=== PATIENT | male | born 1995 | race Caucasian/White ===

== ENCOUNTER 2018-09-11 21:54 | Emergency (ER) | payer OTHER ==
[2018-09-11 22:30] VITALS: BMI 27.4
[2018-09-11 22:53] VITALS: RESP 18; TEMP 98.1
[2018-09-11] MEDS ORDERED: TDAP Vaccine 0.5 mL Syr IM ONE (22:59)
[2018-09-11] MEDS ORDERED: Naproxen 550 mg Tab PO STA (23:38)
[2018-09-11] MEDS ORDERED: Liquid Adhesive TOP ONE (23:48)
--- NOTE | 2018-09-11 23:53 | ED PDOC ---
Arrival/HPI - General Chief Complaint: Wound Check Time Seen by Provider: 09/11/18 22:02 Historian: Patient - History of Present Illness Narrative History of Present Illness (Text): 09/12/18 00:01 23 yo M complaining of laceration tot he R forearm, which he sustained after he broke his window to get inside of his house after locking himself in at 1am this morning. States that he went to [facility] to be treated, had XR of his arm, which were negative, and his wounds were stapled, however one of the wounds opened up after he started to lift heavy objects at his house today. Denies any fevers, chills, numbness, decrease in ROM, redness or swelling. Past Medical History - Infectious Disease Hx of Infectious Diseases: None - Psychiatric Hx Substance Use: Yes (marijuana daily) - Anesthesia Hx Anesthesia: No Family/Social History Family/Social History: No Known Family HX Smoking Status: Light Smoker < 10 Cigarettes Daily Hx Alcohol Use: Yes Hx Substance Use: Yes (marijuana daily) Allergies/Home Meds Allergies/Adverse Reactions: Allergies No Known Allergies Allergy (Verified 09/11/18 22:30) Home Medications: Home Meds Medication Instructions Recorded Confirmed No Known Home Med 09/11/18 09/11/18 Review of Systems - Review of Systems Constitutional: absent: Fatigue, Fevers Musculoskeletal: absent: Arthralgias, Back Pain, Neck Pain Skin: Laceration. absent: Rash, Skin Lesions Physical Exam Vital Signs Temp Pulse Resp BP Pulse Ox 09/11/18 22:31 98.1 F 88 18 122/81 99 Temperature: Afebrile Blood Pressure: Normal Pulse: Regular Respiratory Rate: Normal Appearance: Positive for: Well-Appearing, Non-Toxic, Comfortable Pain Distress: None Mental Status: Positive for: Alert and Oriented X 3 - Systems Exam Upper Extremity: Present: Normal ROM, NORMAL PULSES, Neurovascularly Intact, Capillary Refill < 2s, Norm 2-Pt Discrimination, Other (+2 cm laceration to the distal volar aspect of the R forearm, +0.5 cm laceration to the distal volar R forearm, +stapled wound to the base of the R thumb). No: Swelling, Erythema, Temperature Abnormalties Lower Extremity: Present: Normal Inspection Neurological: Present: GCS=15, CN II-XII Intact, Speech Normal, Motor Func Grossly Intact, Normal Sensory Function Skin: Present: Warm, Dry, Normal Color. No: Rashes Psychiatric: Present: Alert, Oriented x 3, Normal Insight, Normal Concentration Medical Decision Making - Medication Orders Current Medication Orders: Soap/Cleanser (Mastisol Adhesive) 0.666 ml TOP ONCE ONE Stop: 09/11/18 23:49 Discontinued Medications Naproxen (Anaprox Ds) 550 mg PO ONCE STA Stop: 09/11/18 23:39 Tetanus/Reduced Diphtheria/Acell Pertussis (Boostrix Vaccine Inj) 0.5 ml IM .ONCE ONE Stop: 09/11/18 23:00 Last Admin: 09/11/18 23:29 Dose: 0.5 ml Immunization Registry Document 09/11/18 23:29 MARK ANTHONY (Rec: 09/11/18 23:29 MARK ANTHONY [id number]-Date provided 09/11/18 Procedure: Wound Repair - Time Performed Time Performed: 23:50 - Time Out Time Out: Side verified, Site verified, Patient ID confirmed, Sterile procedures obs. - Consent Obtained Consent obtained: Verbal - Performed by Performed by: Mid-level Provider - Indications Indication(s):: Laceration - Location Location:: Right, Forearm Shape:: Linear Dimensions Length cm: 2.5 Depth:: Epidermis - Debris Debris:: None - Complexity Complexity:: Simple (one layer) - Wound repair method Elizabeth:: Steri-strips - Patient tolerated procedure Patient Tolerated Procedure:: Well - PA / PIE MAKER MACHINE / Resident Statement MD/DO has reviewed & agrees with the documentation as recorded. Disposition/Present on Arrival - Present on Arrival Any Indicators Present on Arrival: No History of DVT/PE: No History of Uncontrolled Diabetes: No Urinary Catheter: No History of Decub. Ulcer: No History Surgical Site Infection Following: None - Disposition Have Diagnosis and Disposition been Completed?: Yes Diagnosis: Laceration of right forearm Disposition: HOME/ ROUTINE Disposition Time: 00:00 Patient Plan: Discharge Patient Problems: Current Active Problems Problem Status Onset Laceration of right forearm Acute Condition: STABLE Discharge Instructions (ExitCare): Laceration Repair, Wound Care (DC) Additional Instructions: Thank you for letting us take care of you today. You were treated for right forearm laceration. The emergency medical care you received today was directed at your acute symptoms. It may take several days for your symptoms to resolve. Return to the Emergency Department if your symptoms worsen, do not improve, or if you have any other problems. Please contact your doctor in 2 days for re-evaluation and follow up / or call one of the physicians/clinics you have been referred to that are listed on the Patient Visit Information form that is included in your discharge packet. Bring any paperwork you were given at discharge with you along with any medications you are taking to your follow up visit. Our treatment cannot replace ongoing medical care by a primary care provider (PCP) outside of the emergency department. Thank you for allowing the [facility] team to be part of your care today. Referrals: Fransisco Polanco, [Staff Provider] - Follow up with primary Forms: [facility] (Khmer), WORK NOTE, SCHOOL NOTE
[2018-09-12 00:37] VITALS: BP 120/75; PULSE 81; O2SAT 100
== END 2018-09-12 00:35 | disposition home or self-care (01) ==
LOC: ED 21:54
DX: S51.811D Laceration without foreign body of right forearm, subsequent encounter (principal); W25.XXXD Contact with sharp glass, subsequent encounter; Z23 Encounter for immunization

== ENCOUNTER 2018-11-03 19:03 | Observation (INO) | payer OTHER ==
[2018-11-03 19:46] VITALS: BMI 23.7
--- NOTE | 2018-11-03 20:54 | ED PDOC ---
Arrival/HPI - General Chief Complaint: Finger,Hand,&Wrist Historian: Patient - History of Present Illness Narrative History of Present Illness (Text): 11/03/18 20:51 A 23 year old male, with no significant past medical history, presents to the emergency department infection to right thumb hand area. Patient reports he was seen prior at Urgent Care and had staple removal from a prior laceration repair 3 weeks prior. Patient was referred to ER due to severity of infection. Complains also of subjective fever and positive chills. Patient denies any other complaints at this time. Past Medical History - Provider Review Nursing Documentation Reviewed: Yes - Infectious Disease Hx of Infectious Diseases: None - Psychiatric Hx Substance Use: Yes (marijuana daily) - Anesthesia Hx Anesthesia: No Family/Social History - Physician Review Nursing Documentation Reviewed: Yes Family/Social History: No Known Family HX Smoking Status: Light Smoker < 10 Cigarettes Daily Hx Alcohol Use: Yes Hx Substance Use: Yes (marijuana daily) Allergies/Home Meds Allergies/Adverse Reactions: Allergies No Known Allergies Allergy (Verified 11/03/18 19:46) Home Medications: Home Meds Medication Instructions Recorded Confirmed No Known Home Med 09/11/18 11/03/18 Review of Systems - Physician Review All systems were reviewed & negative as marked: Yes - Review of Systems Constitutional: Fevers, Night Sweats Musculoskeletal: Other (infection to right thumb) Physical Exam Vital Signs Reviewed: Yes Vital Signs Temp Pulse Resp BP Pulse Ox 11/03/18 19:50 98.4 F 69 18 128/80 98 Temperature: Afebrile Blood Pressure: Normal Pulse: Regular Respiratory Rate: Normal Appearance: Positive for: Well-Appearing, Non-Toxic, Comfortable Pain Distress: None Mental Status: Positive for: Alert and Oriented X 3 - Systems Exam Head: Present: Atraumatic, Normocephalic Pupils: Present: PERRL Extroacular Muscles: Present: EOMI Conjunctiva: Present: Normal Mouth: Present: Moist Mucous Membranes Neck: Present: Normal Range of Motion Respiratory/Chest: Present: Clear to Auscultation, Good Air Exchange. No: Respiratory Distress, Accessory Muscle Use Cardiovascular: Present: Regular Rate and Rhythm, Normal S1, S2. No: Murmurs Abdomen: No: Tenderness, Distention, Peritoneal Signs Back: Present: Normal Inspection Upper Extremity: Present: Normal ROM, NORMAL PULSES, Tenderness, Swelling, Erythema, Neurovascularly Intact, Other (erythema/swelling/tenderness proximal right thumb/thenar eminence ) Lower Extremity: Present: Normal Inspection, Neurovascularly Intact. No: Edema, Erythema, Deformity Neurological: Present: GCS=15, CN II-XII Intact, Speech Normal, Motor Func Grossly Intact, Normal Sensory Function Skin: Present: Warm, Dry, Normal Color. No: Rashes Psychiatric: Present: Alert, Oriented x 3, Normal Insight, Normal Concentration Medical Decision Making ED Course and Treatment: 11/03/18 20:54 Impression: 23 year old male with infection to right thumb s/p staple removal. Plan: -- Reassess and disposition Progress Notes: 11/03/18 23:[address] Calvo and claim review medical director, patient to be admitted under hospitalist service. - Scribe Statement The provider has reviewed the documentation as recorded by the Lamont Hester Provider Scribe Attestation: All medical record entries made by the Scribe were at my direction and personally dictated by me. I have reviewed the chart and agree that the record accurately reflects my personal performance of the history, physical exam, medical decision making, and the department course for this patient. I have also personally directed, reviewed, and agree with the discharge instructions and disposition. Disposition/Present on Arrival - Present on Arrival Any Indicators Present on Arrival: No History of DVT/PE: No History of Uncontrolled Diabetes: No Urinary Catheter: No History of Decub. Ulcer: No History Surgical Site Infection Following: None - Disposition Have Diagnosis and Disposition been Completed?: Yes Diagnosis: Cellulitis of right hand, Cellulitis of thumb, right Disposition: HOSPITALIZED Disposition Time: 23:04 Patient Problems: Current Active Problems Problem Status Onset Cellulitis of right hand Acute Cellulitis of thumb, right Acute Condition: STABLE
[2018-11-03] MEDS ORDERED: Piperacillin/Tazobact 3.375 gm 100 ML IV STA (21:36)
[2018-11-03] MEDS ORDERED: Vancomycin 1gm in NS 250ml 1 GM/250 ML BAG IVPB STA (21:40)
[2018-11-03 21:41] LABS: HEMOGLOBIN 13.9 g/dL (14.0-18.0); MEAN CELL VOLUME 91.8 fl (80.0-105.0); MEAN CORPUSCULAR HEMOGLOBIN 31.7 pg (25.0-35.0); MEAN CORPUSCULAR HGB CONC 34.6 g/dl (31.0-37.0); RBC 4.38 10^6/uL (3.5-6.1); RED CELL DISTRIBUTION WIDTH 12.9 % (11.5-14.5); WHITE BLOOD COUNT 13.6 10^3/uL (4.5-11.0)
[2018-11-03 21:46] LABS: ALB/GLOB RATIO 1.6 (1.1-1.8); ALBUMIN 5.4 g/dL (3.0-4.8); ALT/SGPT 18 U/L (7-56); AST/SGOT 30 U/L (17-59); BLOOD UREA NITROGEN 13 mg/dL (7-21); CALCIUM 10.3 mg/dL (8.4-10.5); GFR NON-AFRICAN AMERICAN > 60
--- NOTE | 2018-11-04 00:08 | CP.PCM.HP ---
<Hollis Grimaldo - Last Filed: 11/04/18 04:27> History of Present Illness - History of Present Illness History of Present Illness: PGY1 Medicine History and Physical Exam Note for Dr. Calvo CC: Right thumb pain A 23 year old male, with no significant past medical history, presents to [facility] ED for right thenar eminence laceration that has not healed x3 weeks. Patient reports he was seen prior at Urgent Care and had staple removal 3 weeks prior. Patient states he originally injured his hand because he broke a glass window with his right hand. Patient began noticing that the wound has not healed, became swollen and was tender to touch. Patient was referred to ER due to severity of infection by urgent care provider. ROS is significant for subjective fever and chills. ROS otherwise unremarkable for chest pain, shortness of breath, dizziness, numbness/tingling, abdominal pain, nausea, vomiting, lower extremity edema, and/or other complaints. PMH: None PSH: None Social Hx: admits to daily marijuana use, smokes < 10 cigs per day, admits to ETOH Family Hx: Patient denies Medications: per MAR Allergies: NKDA Present on Admission - Present on Admission Any Indicators Present on Admission: No History of DVT/PE: No History of Uncontrolled Diabetes: No Urinary Catheter: No Decubitus Ulcer Present: No Review of Systems - Review of Systems All systems: reviewed and no additional remarkable complaints except (as per HPI) Past Patient History - Infectious Disease Hx of Infectious Diseases: None - Past Social History Smoking Status: Light Smoker < 10 Cigarettes Daily - PSYCHIATRIC Hx Substance Use: Yes (marijuana daily) - SURGICAL HISTORY Hx Surgeries: No - ANESTHESIA Hx Anesthesia: No Meds Allergies/Adverse Reactions: Allergies Allergy/AdvReac Type Severity Reaction Status Date / Time No Known Allergies Allergy Verified 11/03/18 19:46 Physical Exam - Constitutional Appears: Non-toxic, No Acute Distress - Head Exam Head Exam: ATRAUMATIC, NORMAL INSPECTION, NORMOCEPHALIC - Eye Exam Eye Exam: EOMI, Normal appearance, PERRL Pupil Exam: NORMAL ACCOMODATION - ENT Exam ENT Exam: Mucous Membranes Moist, Normal Exam - Neck Exam Neck exam: Positive for: Normal Inspection - Respiratory Exam Respiratory Exam: Clear to Auscultation Bilateral, NORMAL BREATHING PATTERN. absent: Chest Wall Tenderness, Decreased Breath Sounds, Prolonged Expiratory Phase, Wheezes, Stridor - Cardiovascular Exam Cardiovascular Exam: REGULAR RHYTHM, +S1, +S2 - GI/Abdominal Exam GI & Abdominal Exam: Normal Bowel Sounds, Soft. absent: Distended, Guarding, Rebound, Rigid - Extremities Exam Extremities exam: Negative for: normal inspection Additional comments: laceration on right thenar eminence: positive for edema, erythema, no pus, no bleeding, tender to palpation, pulses in tact, ROM diminished due to pain/ swelling Results - Vital Signs Recent Vital Signs: Last Vital Signs Temp 98.4 F 11/04/18 00:01 Pulse 78 11/04/18 00:01 Resp 16 11/04/18 00:01 BP 105/73 11/04/18 00:01 Pulse Ox 100 11/04/18 00:01 - Labs Result Diagrams: 11/03/18 21:15 11/03/18 21:15 Labs: Laboratory Results - last 24 hr 11/03/18 11/03/18 21:15 21:15 WBC 13.6 H RBC 4.38 Hgb 13.9 L Hct 40.2 L MCV 91.8 MCH 31.7 MCHC 34.6 RDW 12.9 Plt Count 293 MPV 10.0 Sodium 140 Potassium 3.9 Chloride 101 Carbon Dioxide 28 Anion Gap 15 BUN 13 Creatinine 0.6 L Est GFR ( Amer) > 60 Est GFR (Non-Af Amer) > 60 Random Glucose 83 Calcium 10.3 Total Bilirubin 1.4 H AST 30 ALT 18 Alkaline Phosphatase 54 Total Protein 8.8 H Albumin 5.4 H Globulin 3.4 Albumin/Globulin Ratio 1.6 Assessment & Plan - Assessment and Plan (Free Text) Assessment: R Thumb pain in the setting of recent laceration and possible cellulitis vs abscess - Vanco and Zosyn given in ED - Continue Vanco & Zosyn in AM - F/U: R hand X-ray - Positive for leukocytosis - Patient afebrile - F/U Blood cultures - F/U wound cultures - Elevate affected extremity - Apply warm compresses to right thenar eminence - Tylenol PRN for pain - ID consulted; Dr. Torrez; rec appreciated - Surgery consulted; Dr. Mota; recommendations appreciated - Monitor Leukocytosis likely secondary to cellulitis - ID consulted; Dr. Torrez; rec appreciated - Patient afebrile - F/U Blood cultures - F/U wound cultures History of ETOH use - F/U UDS - CIWA protocol - Seizure precautions - Ativan PO PRN for withdrawal PPx: - GI: not indicated - DVT: SCD - Diet: regular diet Plan discussed with Dr. Umesh Grimaldo PGY1 <Ana Calvo - Last Filed: 11/04/18 10:19> Results - Vital Signs Recent Vital Signs: Last Vital Signs Temp 98 F 11/04/18 08:09 Pulse 58 L 11/04/18 08:09 Resp 18 11/04/18 08:09 BP 102/66 11/04/18 08:09 Pulse Ox 96 11/04/18 08:09 - Labs Result Diagrams: 11/04/18 05:20 11/04/18 05:20 Labs: Laboratory Results - last 24 hr 11/03/18 11/03/18 11/04/18 21:15 21:15 04:25 WBC 13.6 H RBC 4.38 Hgb 13.9 L Hct 40.2 L MCV 91.8 MCH 31.7 MCHC 34.6 RDW 12.9 Plt Count 293 MPV 10.0 Neut % (Auto) Lymph % (Auto) [place] % (Auto) Eos % (Auto) Baso % (Auto) Lymph # (Auto) [place] # (Auto) Eos # (Auto) Baso # (Auto) Absolute Neuts (auto) Sodium 140 Potassium 3.9 Chloride 101 Carbon Dioxide 28 Anion Gap 15 BUN 13 Creatinine 0.6 L Est GFR ( Amer) > 60 Est GFR (Non-Af Amer) > 60 Random Glucose 83 Calcium 10.3 Phosphorus Magnesium Total Bilirubin 1.4 H AST 30 ALT 18 Alkaline Phosphatase 54 Total Protein 8.8 H Albumin 5.4 H Globulin 3.4 Albumin/Globulin Ratio 1.6 Urine Color Urine Appearance Urine pH Ur Specific [place] Urine Protein Urine Glucose (UA) Urine Ketones Urine Blood Urine Nitrate Urine Bilirubin Urine Urobilinogen Ur Leukocyte Esterase Urine RBC Urine WBC Ur Epithelial Cells Urine Bacteria Urine Opiates Screen Negative Urine Methadone Screen Negative Ur Barbiturates Screen Negative Ur Phencyclidine Scrn Negative Ur Amphetamines Screen Negative U Benzodiazepines Scrn Negative U Oth Cocaine Metabols Negative U Cannabinoids Screen Positive H 03/01/19 03/01/19 03/01/19 04:25 05:20 05:20 WBC 10.1 D RBC 4.12 Hgb 12.8 L Hct 37.7 L MCV 91.5 MCH 31.1 MCHC 34.0 RDW 12.9 Plt Count 260 MPV 9.7 Neut % (Auto) 60.4 Lymph % (Auto) 31.8 [place] % (Auto) 7.2 H Eos % (Auto) 0.5 L Baso % (Auto) 0.1 Lymph # (Auto) 3.2 [place] # (Auto) 0.7 H Eos # (Auto) 0.1 Baso # (Auto) 0.01 Absolute Neuts (auto) 6.09 Sodium 140 Potassium 4.1 Chloride 105 Carbon Dioxide 25 Anion Gap 14 BUN 11 Creatinine 0.6 L Est GFR ( Amer) > 60 Est GFR (Non-Af Amer) > 60 Random Glucose 90 Calcium 9.7 Phosphorus 4.1 Magnesium 2.2 Total Bilirubin 2.1 H AST 29 ALT 11 Alkaline Phosphatase 50 Total Protein 7.4 Albumin 4.6 Globulin 2.8 Albumin/Globulin Ratio 1.6 Urine Color Yellow Urine Appearance Clear Urine pH 7.0 Ur Specific [place] 1.025 Urine Protein Negative Urine Glucose (UA) Negative Urine Ketones Trace H Urine Blood Trace-lysed H Urine Nitrate Negative Urine Bilirubin Negative Urine Urobilinogen 0.2 Ur Leukocyte Esterase Negative Urine RBC 0 - 2 Urine WBC 0 - 2 Ur Epithelial Cells 0 - 2 Urine Bacteria None Urine Opiates Screen Urine Methadone Screen Ur Barbiturates Screen Ur Phencyclidine Scrn Ur Amphetamines Screen U Benzodiazepines Scrn U Oth Cocaine Metabols U Cannabinoids Screen Attending/Attestation - Attestation I have personally seen and examined this patient.: No I have fully participated in the care of the patient.: Yes I have reviewed all pertinent clinical information: Yes
[2018-11-04 05:46] LABS: URINE BILIRUBIN NEGATIVE (NEGATIVE); URINE BLOOD TRACE-LYSED (NEGATIVE); URINE GLUCOSE (UA) NEGATIVE (NEGATIVE); URINE LEUKOCYTE ESTERASE NEGATIVE Leu/uL (NEGATIVE); URINE PROTEIN NEGATIVE mg/dL (<30 mg/dL); URINE UROBILINOGEN 0.2 E.U./dL (<1 E.U./dL)
[2018-11-04 05:47] LABS: URINE APPEARANCE CLEAR (CLEAR); URINE COLOR YELLOW (YELLOW)
[2018-11-04 05:57] LABS: BASO # 0.01 K/mm3 (0.0-2.0); BASO % 0.1 % (0.0-3.0); EOS # 0.1 (0.0-0.7); EOS % 0.5 % (1.5-5.0); HEMOGLOBIN 12.8 g/dL (14.0-18.0); LYMPH # 3.2 (1.2-3.4); LYMPH % 31.8 % (22.0-35.0); MEAN CELL VOLUME 91.5 fl (80.0-105.0); MEAN CORPUSCULAR HEMOGLOBIN 31.1 pg (25.0-35.0); MEAN PLATELET VOLUME 9.7 fl (7.0-11.0); MONO # 0.7 (0.1-0.6); MONO % 7.2 % (1.0-6.0); RBC 4.12 10^6/uL (3.5-6.1); RED CELL DISTRIBUTION WIDTH 12.9 % (11.5-14.5); WHITE BLOOD COUNT 10.1 10^3/uL (4.5-11.0)
[2018-11-04 05:58] LABS: URINE EPITHELIAL CELLS 0 - 2 /hpf (0-5); URINE RBC 0 - 2 /hpf (0-2); URINE WBC 0 - 2 /hpf (0-6)
[2018-11-04 06:01] LABS: BARBITURATES, UR NEGATIVE (NEGATIVE); BENZODIAZEPINES, UR NEGATIVE (NEGATIVE); OPIATES, UR NEGATIVE (NEGATIVE); PHENCYCLIDINE, UR NEGATIVE (NEGATIVE)
[2018-11-04 07:17] LABS: ALB/GLOB RATIO 1.6 (1.1-1.8); ALBUMIN 4.6 g/dL (3.0-4.8); ALT/SGPT 11 U/L (7-56); AST/SGOT 29 U/L (17-59); BLOOD UREA NITROGEN 11 mg/dL (7-21); CALCIUM 9.7 mg/dL (8.4-10.5); GFR NON-AFRICAN AMERICAN > 60
--- NOTE | 2018-11-04 08:18 | CP.PCM.CON ---
History of Present Illness - History of Present Illness History of Present Illness: Surgery Consult note. Dr. Colin 23yo M with no significant PMHx, here for evaluation of right hand abscess. Patient states that 3 weeks ago, he fell onto a window and got cut by the glass. He had a wound on the proximal part of is right lateral thumb and two more superficial ones on the right wrist. He states that he went to an urgent care at that time where they closed the wound on the right thumb with a staple. He started noticing some inflammation over the next few weeks and also noted some purulent material coming out of the wound. He returned to the urgent care today where the staple was removed and then was referred to [facility] [facility] for further evaluation. He denies any fevers or chills. No CP/SOB. No worsening erythema. No headaches. No N/V/D. PMHx: Denies PSHx:Denies Famiy Hx: non-contributory Social Hx: Admits to 1/2 pack smoker per day. Admits to social ETOH use. Admits to marijuana use. NKDA Review of Systems - Review of Systems All systems: reviewed and no additional remarkable complaints except - Constitutional Constitutional: absent: Chills, Fever - Cardiovascular Cardiovascular: absent: Chest Pain - Respiratory Respiratory: absent: Dyspnea - Gastrointestinal Gastrointestinal: absent: Abdominal Pain, Diarrhea, Nausea, Vomiting - Integumentary Integumentary: Erythema, Swelling Past Patient History - Infectious Disease Hx of Infectious Diseases: None - Past Medical History & Family History Past Family History: Reviewed and not pertinent - Past Social History Smoking Status: Light Smoker < 10 Cigarettes Daily Alcohol: Social Drugs: Cannabis - CARDIAC Hx Cardiac Disorders: No - PULMONARY Hx Respiratory Disorders: No - NEUROLOGICAL Hx Neurological Disorder: No - HEENT Hx HEENT Problems: No - RENAL Hx Chronic Kidney Disease: No - ENDOCRINE/METABOLIC Hx Endocrine Disorders: No - HEMATOLOGICAL/ONCOLOGICAL Hx Blood Disorders: No - INTEGUMENTARY Hx Dermatological Problems: No - MUSCULOSKELETAL/RHEUMATOLOGICAL Hx Falls: No - GASTROINTESTINAL Hx Gastrointestinal Disorders: No - GENITOURINARY/GYNECOLOGICAL Hx Genitourinary Disorders: No - PSYCHIATRIC Hx Substance Use: Yes (marijuana daily) - SURGICAL HISTORY Hx Surgeries: No - ANESTHESIA Hx Anesthesia: No Meds Allergies/Adverse Reactions: Allergies Allergy/AdvReac Type Severity Reaction Status Date / Time No Known Allergies Allergy Verified 11/03/18 19:46 - Medications Medications: Current Medications Acetaminophen (Tylenol 325mg Tab) 650 mg PO Q4 PRN PRN Reason: Fever >100.4 F Vancomycin HCl (Vancomycin 1gm) 1 gm in 250 mls @ 167 mls/hr IVPB DAILY SAAD; Protocol Piperacillin Sod/Tazobactam Sod (Zosyn 3.375 In Ns 100ml) 100 mls @ 25 mls/hr IVPB Q12 SAAD; Protocol Stop: 11/04/18 13:59 Lorazepam (Ativan) 0.5 mg PO TID PRN; Protocol PRN Reason: Anxiety Physical Exam - Constitutional Appears: Well, Non-toxic, No Acute Distress - Head Exam Head Exam: ATRAUMATIC, NORMAL INSPECTION, NORMOCEPHALIC - Eye Exam Eye Exam: EOMI, Normal appearance. absent: Scleral icterus - ENT Exam ENT Exam: Mucous Membranes Moist - Respiratory Exam Respiratory Exam: Clear to Auscultation Bilateral, NORMAL BREATHING PATTERN. absent: Accessory Muscle Use, Respiratory Distress - Cardiovascular Exam Cardiovascular Exam: absent: JVD - GI/Abdominal Exam GI & Abdominal Exam: Soft. absent: Distended, Firm, Guarding, Rebound, Tenderness - Extremities Exam Extremities exam: Positive for: normal inspection Additional comments: Area at right thumb with fluctuance and induration. tendons intact No tenderness to passive and active motion - Back Exam Back exam: NORMAL INSPECTION - Neurological Exam Neurological exam: Alert, Oriented x3 - Psychiatric Exam Psychiatric exam: Normal Affect, Normal Mood Results - Vital Signs Recent Vital Signs: Last Vital Signs Temp 98 F 11/04/18 08:09 Pulse 58 L 11/04/18 08:09 Resp 18 11/04/18 08:09 BP 102/66 11/04/18 08:09 Pulse Ox 96 11/04/18 08:09 - Labs Result Diagrams: 11/04/18 05:20 11/04/18 05:20 Labs: Laboratory Results - last 24 hr 11/03/18 11/03/18 11/04/18 21:15 21:15 04:25 WBC 13.6 H RBC 4.38 Hgb 13.9 L Hct 40.2 L MCV 91.8 MCH 31.7 MCHC 34.6 RDW 12.9 Plt Count 293 MPV 10.0 Neut % (Auto) Lymph % (Auto) [place] % (Auto) Eos % (Auto) Baso % (Auto) Lymph # (Auto) [place] # (Auto) Eos # (Auto) Baso # (Auto) Absolute Neuts (auto) Sodium 140 Potassium 3.9 Chloride 101 Carbon Dioxide 28 Anion Gap 15 BUN 13 Creatinine 0.6 L Est GFR ( Amer) > 60 Est GFR (Non-Af Amer) > 60 Random Glucose 83 Calcium 10.3 Phosphorus Magnesium Total Bilirubin 1.4 H AST 30 ALT 18 Alkaline Phosphatase 54 Total Protein 8.8 H Albumin 5.4 H Globulin 3.4 Albumin/Globulin Ratio 1.6 Urine Color Urine Appearance Urine pH Ur Specific [place] Urine Protein Urine Glucose (UA) Urine Ketones Urine Blood Urine Nitrate Urine Bilirubin Urine Urobilinogen Ur Leukocyte Esterase Urine RBC Urine WBC Ur Epithelial Cells Urine Bacteria Urine Opiates Screen Negative Urine Methadone Screen Negative Ur Barbiturates Screen Negative Ur Phencyclidine Scrn Negative Ur Amphetamines Screen Negative U Benzodiazepines Scrn Negative U Oth Cocaine Metabols Negative U Cannabinoids Screen Positive H 11/04/18 11/04/18 11/04/18 04:25 05:20 05:20 WBC 10.1 D RBC 4.12 Hgb 12.8 L Hct 37.7 L MCV 91.5 MCH 31.1 MCHC 34.0 RDW 12.9 Plt Count 260 MPV 9.7 Neut % (Auto) 60.4 Lymph % (Auto) 31.8 [place] % (Auto) 7.2 H Eos % (Auto) 0.5 L Baso % (Auto) 0.1 Lymph # (Auto) 3.2 [place] # (Auto) 0.7 H Eos # (Auto) 0.1 Baso # (Auto) 0.01 Absolute Neuts (auto) 6.09 Sodium 140 Potassium 4.1 Chloride 105 Carbon Dioxide 25 Anion Gap 14 BUN 11 Creatinine 0.6 L Est GFR ( Amer) > 60 Est GFR (Non-Af Amer) > 60 Random Glucose 90 Calcium 9.7 Phosphorus 4.1 Magnesium 2.2 Total Bilirubin 2.1 H AST 29 ALT 11 Alkaline Phosphatase 50 Total Protein 7.4 Albumin 4.6 Globulin 2.8 Albumin/Globulin Ratio 1.6 Urine Color Yellow Urine Appearance Clear Urine pH 7.0 Ur Specific [place] 1.025 Urine Protein Negative Urine Glucose (UA) Negative Urine Ketones Trace H Urine Blood Trace-lysed H Urine Nitrate Negative Urine Bilirubin Negative Urine Urobilinogen 0.2 Ur Leukocyte Esterase Negative Urine RBC 0 - 2 Urine WBC 0 - 2 Ur Epithelial Cells 0 - 2 Urine Bacteria None Urine Opiates Screen Urine Methadone Screen Ur Barbiturates Screen Ur Phencyclidine Scrn Ur Amphetamines Screen U Benzodiazepines Scrn U Oth Cocaine Metabols U Cannabinoids Screen Assessment & Plan - Assessment and Plan (Free Text) Assessment: 23yo M with right thumb abscess Plan: - Will do bedside Incision and Drainage today - Continue abx Further recs as per Dr. Dixie Maldonado PGY2 surgery
[2018-11-04] MEDS: Vancomycin 1gm in NS 250ml 1 GM/250 ML BAG IVPB SCH (09:22)
[2018-11-04] MEDS ORDERED: Piperacillin/Tazobact 3.375 gm 100 ML IVPB SCH (10:00)
--- NOTE | 2018-11-04 10:31 | RAD ---
PROCEDURE: Right Hand Radiographs. HISTORY: infection /past hx. of laceration on glass COMPARISON: None. FINDINGS: BONES: Normal. No fracture. JOINTS: Normal. No osteoarthritic changes. SOFT TISSUES: Normal. OTHER FINDINGS: None. IMPRESSION: Normal right hand radiographs.
--- NOTE | 2018-11-04 14:54 | PCM.PROC ---
- Incision & Drainage Of Abscess Anesthesia: Lidocaine 1% Prep Used: Betadine Procedure: Incised W/Scalpel Blade#: (11), Drained Pus, Irrigated Cavity W/Saline, Probed To Break Up Loculations, Packed W/Gauze, Cultures Obtained And Sent To Lab
[2018-11-04 19:32] VITALS: PULSE 65; O2SAT 98
[2018-11-04] MEDS: Piperacillin/Tazobact 3.375 gm 100 ML IVPB SCH (21:25)
--- NOTE | 2018-11-05 01:16 | CON ---
DATE: 11/04/2018 LOCATION: The patient was seen earlier today in Room 364, Bed 2. CHIEF COMPLAINT: Right thumb infection x3 weeks duration. HISTORY OF PRESENT ILLNESS: This is a 23-year-old male who has no significant past medical history, who was admitted to the emergency room complaining of right thumb infection. He states he had cut his hand and a laceration to a glass tore; however, that was 3 weeks ago, the hand was not been swollen, however, over the last several days the hand became more swollen and painful and he was admitted for further evaluation. REVIEW OF SYSTEMS: He has no fever and chills. No chest pain. PAST MEDICAL HISTORY: Noncontributory. PAST SURGICAL HISTORY: Noncontributory. SOCIAL HISTORY: The patient does use marijuana and he does use alcohol. MEDICATIONS AT HOME: He has not taken any medications. PHYSICAL EXAMINATION GENERAL: He is in bed, answering questions. VITAL SIGNS: Temperature is 98, blood pressure is 102/50, respiratory rate of 18, with a heart rate of 69. HEENT: Unremarkable. NECK: Supple. LUNGS: Decreased breath sounds. HEART: Normal S1, S2. ABDOMEN: Soft, nontender. EXTREMITIES: Examination of right hand thumb is in packing where the patient had an incision and drainage. There is erythema and with discharge. LABORATORY DATA: Reveals a white count of 13,000, hemoglobin of 13. Chemistries are noted and urinalysis is noted. Urinalysis is reviewed with trace/slight blood and toxicology is also positive for cannabinoids and . Microbiology is pending. The patient also had an x-ray of his hand, which shows normal x-ray of the hand. History and physical examination by Dr. Calvo is reviewed. The patient does smoke cigarettes, 10 cigarettes a day. Consultation by is noted and a procedure note with incision and drained pus is noted. ASSESSMENT AND PLAN: This is a 23-year-old male with status post trauma with right hand cellulitis, incision and drainage of pus with leukocytosis. Treat the patient with vancomycin and with Zosyn for now pending identification and sensitivity of the blood culture results and wound culture results. Because of the patient's age of 23, we recommend an human immunodeficiency virus test. We will await further recommendations upon availability of culture results and response. All the blood cultures are pending. The right thumb has been drained. We will follow with you. Parveen Palma MD
[2018-11-05] MEDS: Piperacillin/Tazobact 3.375 gm 100 ML IVPB SCH (05:03)
[2018-11-05 07:04] VITALS: BP 117/71; RESP 18; TEMP 97.8
--- NOTE | 2018-11-05 10:01 | CP.PCM.PN ---
Subjective - Date & Time of Evaluation Date of Evaluation: 11/05/18 Time of Evaluation: 07:20 - Subjective Subjective: Plastic/hand surgery progress note for Dr. Colin Patient seen and examined this am at bedside. packing removed, incision site irrigated, no further pus expressed. Erythema improved. Patient otherwise denies F?C, SOB, CP abdominal pain and numbness or motor deficits in his right hand. Objective - Vital Signs/Intake and Output Vital Signs (last 24 hours): Temp Pulse Resp BP Pulse Ox 97.8 F 65 18 117/71 98 11/05/18 06:00 11/05/18 06:00 11/05/18 06:00 11/05/18 06:00 11/05/18 06:00 Intake and Output: 11/05/18 11/05/18 06:59 18:59 Intake Total 240 Balance 240 - Medications Medications: Current Medications Acetaminophen (Tylenol 325mg Tab) 650 mg PO Q4 PRN PRN Reason: Fever >100.4 F Vancomycin HCl (Vancomycin 1gm) 1 gm in 250 mls @ 167 mls/hr IVPB DAILY SAAD; Protocol Last Admin: 11/04/18 09:22 Dose: 167 mls/hr Piperacillin Sod/Tazobactam Sod (Zosyn 3.375 In Ns 100ml) 100 mls @ 25 mls/hr IVPB Q8 SAAD; Protocol Stop: 11/13/18 22:01 Last Admin: 11/05/18 05:03 Dose: 25 mls/hr Lorazepam (Ativan) 0.5 mg PO TID PRN; Protocol PRN Reason: Anxiety Last Admin: 11/04/18 21:25 Dose: 0.5 mg Nicotine (Nicoderm Cq) 1 patch TD DAILY PRN PRN Reason: URGE TO SMOKE Last Admin: 11/04/18 16:35 Dose: 1 patch - Labs Labs: 11/04/18 05:20 11/04/18 05:20 - Constitutional Appears: Well, Non-toxic, No Acute Distress - Eye Exam Eye Exam: EOMI - ENT Exam ENT Exam: Mucous Membranes Moist - Respiratory Exam Respiratory Exam: NORMAL BREATHING PATTERN - Cardiovascular Exam Cardiovascular Exam: REGULAR RHYTHM - GI/Abdominal Exam GI & Abdominal Exam: Soft. absent: Tenderness - Extremities Exam Additional comments: erythema over right distal thenar eminence improved, no further purulent drainage packing removed, irrigated with saline 1 cm incision from I&D present - Neurological Exam Neurological Exam: Alert, Awake, Oriented x3 - Psychiatric Exam Psychiatric exam: Normal Affect, Normal Mood - Skin Skin Exam: Dry, Erythema (mild, much improved from previous day), Warm Assessment and Plan - Assessment and Plan (Free Text) Assessment: 23 yr old male presenting with small abscess to right distal thenar eminence s/p I&D POD 1 Plan: continue abx as per ID recs packing removed, no further packing necessary patient to follow up with Dr. Colin in his office within 5-7 days of discharge patient should keep area covered and clean to avoid contamination no further surgical intervention necessary plan discussed with Dr. Dixie Monzon, PGY 1
[2018-11-05] MEDS: Vancomycin 1gm in NS 250ml 1 GM/250 ML BAG IVPB SCH (10:40)
--- NOTE | 2018-11-05 14:16 | CP.PCM.DIS ---
<Wilma Montano L - Last Filed: 11/05/18 14:33> Provider - Provider Date of Admission: 11/03/18 23:01 Attending physician: Chacha Rayo DO Consults: 11/04/18 02:14 Infectious Disease Consult Routine Comment: Consulting Provider: Ron Torrez Consulting Physician: Ron Torrez Reason for Consult: right thumb cellulitis vs abscess 11/04/18 08:07 Physician Consult Routine Comment: Consulting Provider: Tom Colin Consulting Physician: Tom Colin Reason for Consult: right thenar eminence possible abscess Time Spent in preparation of Discharge (in minutes): 35 Diagnosis - Discharge Diagnosis (1) Abscess of right hand Status: Acute Hospital Course - Lab Results Lab Results: Micro Results 11/04/18 10:15 Abscess - Hand-Right Gram Stain - Final 11/04/18 10:15 Abscess - Hand-Right Wound Culture - Preliminary Group C Streptococcus 11/04/18 04:25 Urine Random Urine Culture - Final No Growth (<1,000 CFU/ML) 11/03/18 21:45 Blood Blood Culture - Preliminary NO GROWTH AFTER 24 HOURS 11/03/18 21:15 Blood Blood Culture - Preliminary NO GROWTH AFTER 24 HOURS Most Recent Lab Values WBC 10.1 10^3/uL (4.5-11.0) D 11/04/18 05:20 RBC 4.12 10^6/uL (3.5-6.1) 11/04/18 05:20 Hgb 12.8 g/dL (14.0-18.0) L 11/04/18 05:20 Hct 37.7 % (42.0-52.0) L 11/04/18 05:20 MCV 91.5 fl (80.0-105.0) 11/04/18 05:20 MCH 31.1 pg (25.0-35.0) 11/04/18 05:20 MCHC 34.0 g/dl (31.0-37.0) 11/04/18 05:20 RDW 12.9 % (11.5-14.5) 11/04/18 05:20 Plt Count 260 10^3/uL (120.0-450.0) 11/04/18 05:20 MPV 9.7 fl (7.0-11.0) 11/04/18 05:20 Neut % (Auto) 60.4 % (50.0-68.0) 11/04/18 05:20 Lymph % (Auto) 31.8 % (22.0-35.0) 11/04/18 05:20 [place] % (Auto) 7.2 % (1.0-6.0) H 11/04/18 05:20 Eos % (Auto) 0.5 % (1.5-5.0) L 11/04/18 05:20 Baso % (Auto) 0.1 % (0.0-3.0) 11/04/18 05:20 Lymph # (Auto) 3.2 (1.2-3.4) 11/04/18 05:20 [place] # (Auto) 0.7 (0.1-0.6) H 11/04/18 05:20 Eos # (Auto) 0.1 (0.0-0.7) 11/04/18 05:20 Baso # (Auto) 0.01 K/mm3 (0.0-2.0) 11/04/18 05:20 Absolute Neuts (auto) 6.09 (1.4-6.5) 11/04/18 05:20 Sodium 140 mmol/L (132-148) 11/04/18 05:20 Potassium 4.1 mmol/L (3.6-5.0) 11/04/18 05:20 Chloride 105 mmol/L (98-107) 11/04/18 05:20 Carbon Dioxide 25 mmol/L (21-33) 11/04/18 05:20 Anion Gap 14 (10-20) 11/04/18 05:20 BUN 11 mg/dL (7-21) 11/04/18 05:20 Creatinine 0.6 mg/dl (0.8-1.5) L 11/04/18 05:20 Est GFR ( Amer) > 60 11/04/18 05:20 Est GFR (Non-Af Amer) > 60 11/04/18 05:20 Random Glucose 90 mg/dL (70-110) 11/04/18 05:20 Calcium 9.7 mg/dL (8.4-10.5) 11/04/18 05:20 Phosphorus 4.1 mg/dL (2.5-4.5) 11/04/18 05:20 Magnesium 2.2 mg/dL (1.7-2.2) 11/04/18 05:20 Total Bilirubin 2.1 mg/dL (0.2-1.3) H 11/04/18 05:20 AST 29 U/L (17-59) 11/04/18 05:20 ALT 11 U/L (7-56) 11/04/18 05:20 Alkaline Phosphatase 50 U/L (38-126) 11/04/18 05:20 Total Protein 7.4 g/dL (5.8-8.3) 11/04/18 05:20 Albumin 4.6 g/dL (3.0-4.8) 11/04/18 05:20 Globulin 2.8 gm/dL 11/04/18 05:20 Albumin/Globulin Ratio 1.6 (1.1-1.8) 11/04/18 05:20 Urine Color Yellow (YELLOW) 11/04/18 04:25 Urine Appearance Clear (CLEAR) 11/04/18 04:25 Urine pH 7.0 (4.7-8.0) 11/04/18 04:25 Ur Specific [place] 1.025 (1.005-1.035) 11/04/18 04:25 Urine Protein Negative mg/dL (<30 mg/dL) 11/04/18 04:25 Urine Glucose (UA) Negative mg/dL (NEGATIVE) 11/04/18 04:25 Urine Ketones Trace mg/dL (NEGATIVE) H 11/04/18 04:25 Urine Blood Trace-lysed (NEGATIVE) H 11/04/18 04:25 Urine Nitrate Negative (NEGATIVE) 11/04/18 04:25 Urine Bilirubin Negative (NEGATIVE) 11/04/18 04:25 Urine Urobilinogen 0.2 E.U./dL (<1 E.U./dL) 11/04/18 04:25 Ur Leukocyte Esterase Negative Cole/uL (NEGATIVE) 11/04/18 04:25 Urine RBC 0 - 2 /hpf (0-2) 11/04/18 04:25 Urine WBC 0 - 2 /hpf (0-6) 11/04/18 04:25 Ur Epithelial Cells 0 - 2 /hpf (0-5) 11/04/18 04:25 Urine Bacteria None /hpf (NONE) 11/04/18 04:25 Urine Opiates Screen Negative (NEGATIVE) 11/04/18 04:25 Urine Methadone Screen Negative (NEGATIVE) 11/04/18 04:25 Ur Barbiturates Screen Negative (NEGATIVE) 11/04/18 04:25 Ur Phencyclidine Scrn Negative (NEGATIVE) 11/04/18 04:25 Ur Amphetamines Screen Negative (NEGATIVE) 11/04/18 04:25 U Benzodiazepines Scrn Negative (NEGATIVE) 11/04/18 04:25 U Oth Cocaine Metabols Negative (NEGATIVE) 11/04/18 04:25 U Cannabinoids Screen Positive (NEGATIVE) H 11/04/18 04:25 HIV 1&2 Ag/Ab, 4th Gen Nonreactive (Nonreactive) 11/04/18 15:00 - Hospital Course Hospital Course: On admission: A 23 year old male, with no significant past medical history, presents to [facility] for right thenar eminence laceration that has not healed x3 weeks. Patient reports he was seen prior at Urgent Care and had staple removal 3 weeks prior. Patient states he originally injured his hand because he broke a glass window with his right hand. Patient began noticing that the wound has not healed, became swollen and was tender to touch. Patient was referred to ER due to severity of infection by urgent care provider. ROS is significant for subjective fever and chills. ROS otherwise unremarkable for chest pain, shortness of breath, dizziness, numbness/tingling, abdominal pain, nausea, vomiting, lower extremity edema, and/or other complaints. During hospital stay: Patient was started on zosyn and vancomycin. Surgery and I D were consulted. Patient was also placed on CIWA protocol and seizure precautions. Patient underwent I&D of abscess which he tolerated well. Blood cultures were negative. Urine culture was negative. Wound culture grew Group C Streptococcus. Patient was optimized for discharge and instructed to take Augmentin 875 PO BID for 10 days. Discharge Exam - Additional Findings Additional findings: - Constitutional Appears: Non-toxic, No Acute Distress - Head Exam Head Exam: ATRAUMATIC, NORMOCEPHALIC - Eye Exam Eye Exam: EOMI, PERRL - ENT Exam ENT Exam: Mucous Membranes Moist, Normal Exam - Neck Exam Neck exam: Positive for: Normal Inspection - Respiratory Exam Respiratory Exam: Clear to Auscultation Bilateral, NORMAL BREATHING PATTERN. absent: Decreased Breath Sounds, Prolonged Expiratory Phase, Wheezes, Stridor - Cardiovascular Exam Cardiovascular Exam: REGULAR RHYTHM, +S1, +S2 - GI/Abdominal Exam GI & Abdominal Exam: Normal Bowel Sounds, Soft. absent: Distended, Guarding, Rebound, Rigid - Extremities Exam Extremities exam: Negative for: normal inspection Additional comments: right thumb abscess with incision, non tender Discharge Plan - Discharge Medications Prescriptions: Amoxicillin/Clavulanate [Augmentin 875 MG-125 MG] 1 tab PO BID 10 Days #20 tab - Follow Up Plan Condition: STABLE Disposition: HOME/ ROUTINE Instructions: Cellulitis (Skin Infection), Adult (DC) Additional Instructions: Follow up with your primary medical doctor within 3-5 days. Take your antibiotics as prescribed. You have been prescribed Augmentin 875 mg orally twice a day for 10 days, take with food. Avoid any alcohol use while taking the medications Follow up with orthopedic surgeon, Dr. Colin, within one week. Keep wound clean and dry. Return to ED if symptoms return. Referrals: Tom Colin MD [Staff Provider] - <Chacha Rayo - Last Filed: 11/07/18 21:17> Provider - Provider Date of Admission: 11/03/18 23:01 Attending physician: Chacha Rayo DO Consults: 11/04/18 02:14 Infectious Disease Consult Routine Comment: Consulting Provider: Ron Torrez Consulting Physician: Ron Torrez Reason for Consult: right thumb cellulitis vs abscess 11/04/18 08:07 Physician Consult Routine Comment: Consulting Provider: Tom Colin Consulting Physician: Tom Colin Reason for Consult: right thenar eminence possible abscess Hospital Course - Lab Results Lab Results: Micro Results 11/04/18 10:15 Abscess - Hand-Right Gram Stain - Final 11/04/18 10:15 Abscess - Hand-Right Wound Culture - Final Staphylococcus Aureus Group C Streptococcus 11/03/18 21:45 Blood Blood Culture - Preliminary NO GROWTH AFTER 3 DAYS 11/03/18 21:15 Blood Blood Culture - Preliminary NO GROWTH AFTER 3 DAYS 11/04/18 04:25 Urine Random Urine Culture - Final No Growth (<1,000 CFU/ML) Most Recent Lab Values WBC 10.1 10^3/uL (4.5-11.0) D 11/04/18 05:20 RBC 4.12 10^6/uL (3.5-6.1) 11/04/18 05:20 Hgb 12.8 g/dL (14.0-18.0) L 11/04/18 05:20 Hct 37.7 % (42.0-52.0) L 11/04/18 05:20 MCV 91.5 fl (80.0-105.0) 11/04/18 05:20 MCH 31.1 pg (25.0-35.0) 11/04/18 05:20 MCHC 34.0 g/dl (31.0-37.0) 11/04/18 05:20 RDW 12.9 % (11.5-14.5) 11/04/18 05:20 Plt Count 260 10^3/uL (120.0-450.0) 11/04/18 05:20 MPV 9.7 fl (7.0-11.0) 11/04/18 05:20 Neut % (Auto) 60.4 % (50.0-68.0) 11/04/18 05:20 Lymph % (Auto) 31.8 % (22.0-35.0) 11/04/18 05:20 [place] % (Auto) 7.2 % (1.0-6.0) H 11/04/18 05:20 Eos % (Auto) 0.5 % (1.5-5.0) L 11/04/18 05:20 Baso % (Auto) 0.1 % (0.0-3.0) 11/04/18 05:20 Lymph # (Auto) 3.2 (1.2-3.4) 11/04/18 05:20 [place] # (Auto) 0.7 (0.1-0.6) H 11/04/18 05:20 Eos # (Auto) 0.1 (0.0-0.7) 11/04/18 05:20 Baso # (Auto) 0.01 K/mm3 (0.0-2.0) 11/04/18 05:20 Absolute Neuts (auto) 6.09 (1.4-6.5) 11/04/18 05:20 Sodium 140 mmol/L (132-148) 11/04/18 05:20 Potassium 4.1 mmol/L (3.6-5.0) 11/04/18 05:20 Chloride 105 mmol/L (98-107) 11/04/18 05:20 Carbon Dioxide 25 mmol/L (21-33) 11/04/18 05:20 Anion Gap 14 (10-20) 11/04/18 05:20 BUN 11 mg/dL (7-21) 11/04/18 05:20 Creatinine 0.6 mg/dl (0.8-1.5) L 11/04/18 05:20 Est GFR ( Amer) > 60 11/04/18 05:20 Est GFR (Non-Af Amer) > 60 11/04/18 05:20 Random Glucose 90 mg/dL (70-110) 11/04/18 05:20 Calcium 9.7 mg/dL (8.4-10.5) 11/04/18 05:20 Phosphorus 4.1 mg/dL (2.5-4.5) 11/04/18 05:20 Magnesium 2.2 mg/dL (1.7-2.2) 11/04/18 05:20 Total Bilirubin 2.1 mg/dL (0.2-1.3) H 11/04/18 05:20 AST 29 U/L (17-59) 11/04/18 05:20 ALT 11 U/L (7-56) 11/04/18 05:20 Alkaline Phosphatase 50 U/L (38-126) 11/04/18 05:20 Total Protein 7.4 g/dL (5.8-8.3) 11/04/18 05:20 Albumin 4.6 g/dL (3.0-4.8) 11/04/18 05:20 Globulin 2.8 gm/dL 11/04/18 05:20 Albumin/Globulin Ratio 1.6 (1.1-1.8) 11/04/18 05:20 Urine Color Yellow (YELLOW) 11/04/18 04:25 Urine Appearance Clear (CLEAR) 11/04/18 04:25 Urine pH 7.0 (4.7-8.0) 11/04/18 04:25 Ur Specific [place] 1.025 (1.005-1.035) 11/04/18 04:25 Urine Protein Negative mg/dL (<30 mg/dL) 11/04/18 04:25 Urine Glucose (UA) Negative mg/dL (NEGATIVE) 11/04/18 04:25 Urine Ketones Trace mg/dL (NEGATIVE) H 11/04/18 04:25 Urine Blood Trace-lysed (NEGATIVE) H 11/04/18 04:25 Urine Nitrate Negative (NEGATIVE) 11/04/18 04:25 Urine Bilirubin Negative (NEGATIVE) 11/04/18 04:25 Urine Urobilinogen 0.2 E.U./dL (<1 E.U./dL) 11/04/18 04:25 Ur Leukocyte Esterase Negative Cole/uL (NEGATIVE) 11/04/18 04:25 Urine RBC 0 - 2 /hpf (0-2) 11/04/18 04:25 Urine WBC 0 - 2 /hpf (0-6) 11/04/18 04:25 Ur Epithelial Cells 0 - 2 /hpf (0-5) 11/04/18 04:25 Urine Bacteria None /hpf (NONE) 11/04/18 04:25 Urine Opiates Screen Negative (NEGATIVE) 11/04/18 04:25 Urine Methadone Screen Negative (NEGATIVE) 11/04/18 04:25 Ur Barbiturates Screen Negative (NEGATIVE) 11/04/18 04:25 Ur Phencyclidine Scrn Negative (NEGATIVE) 11/04/18 04:25 Ur Amphetamines Screen Negative (NEGATIVE) 11/04/18 04:25 U Benzodiazepines Scrn Negative (NEGATIVE) 11/04/18 04:25 U Oth Cocaine Metabols Negative (NEGATIVE) 11/04/18 04:25 U Cannabinoids Screen Positive (NEGATIVE) H 11/04/18 04:25 HIV 1&2 Ag/Ab, 4th Gen Nonreactive (Nonreactive) 11/04/18 15:00 Attending/Attestation - Attestation I have personally seen and examined this patient.: Yes I have fully participated in the care of the patient.: Yes I have reviewed all pertinent clinical information, including history, physical exam and plan: Yes Notes (Text): Please note this DC summary is for 11/05/18 Patient seen and examined by me with resident at approximately 8:50AM and prior to discharge on 11/05/18. Case including discharge plan discussed with resident. Agree with above with following additions/corrections. Patient is a 23 year old male with past medical history of alcohol and marijuana use that presented to the emergency room with unhealed wound on right thenar eminence. Please see H&P for full details. Patient was found to have right thumb pain with recent laceration, now with cellulitis and possible abscess. Leukocytosis resolved. Patient was seen by surgical team and ID. Blood cultures were negative. Patient was afebrile. Patient was had bedside I&D with improvement in pain. Wound culture grew Group C streptococcus. Patient was cleared for discharge by ID on Augmentin. Patient was cleared by surgical team with local wound care. UDS was positive for marijuana. Patient was counseled on cessation. Patient was discharged home. On the day of discharge, patient stated he was feeling much better. Right thumb pain improved. No palpitations. No shortness of breath. Patient was tolerating diet. No nausea or vomiting. No abdominal pain. Patient denied headaches or dizziness. No fevers or chills. No dysuria. No diarrhea or constipation. Physical exam: General: Awake and alert lying in bed in no acute distress HEENT: Normocephalic, atraumatic. Extraocular muscles intact, pupils equal and reactive, no scleral icterus. Oropharynx is pink moist. No pharyngeal erythema or exudate appreciated. Neck is supple. Cardiovascular: Regular rhythm. Normal S1 and S2. No murmurs, rubs, or gallops appreciated Pulmonary: Normal respiratory effort. No rhonchi, rales, or wheezing appreciated. Gastrointestinal: Soft, nondistended. Nontender. Positive bowel sounds all 4 quadrants. No guarding. Musculoskeletal: Moves all extremities. No calf tenderness. No edema appreciated. Right thumb dressing, clean, dry, and intact. Central nervous system: AAOx3. CN 2-12 grossly intact. 5/5 muscle strength all extremities. Dermatologic: Skin warm and dry. Please see chart for full details. Follow up instructions: Patient to follow up with PMD within 3-5 days. Patient to take antibiotics and prescribed. Patient to follow up with orthopedic surgeon within one week. All instructions explained to the patient in detail. Patient both understands and agrees to all instructions. Written instructions also given.
--- NOTE | 2018-11-05 18:59 | PN ---
DATE: 11/05/2018 SUBJECTIVE: The patient is in bed, in no acute distress, nontoxic. PHYSICAL EXAMINATION: VITAL SIGNS: Temperature is 98, blood pressure is 117/71, respiratory rate of 18, heart rate of 65. HEENT: Unremarkable. NECK: Supple. LUNGS: Decreased breath sounds. HEART: Normal S1, S2. ABDOMEN: Soft, nontender. LABORATORY DATA: White count of 10,000, hemoglobin of 12, and platelets of 260. Chemistries are noted. Urinalysis is noted. Serology is reviewed. The patient's finger is much improved. ASSESSMENT AND PLAN: He is a 23-year-old status post trauma with right hand cellulitis, incision and drainage of pus. His leukocytosis is improved with group C Strep from the hand culture. The patient has full function of his hand. We may be able to switch to Augmentin 875 by mouth two times a day x10 days upon discharge when the patient is cleared for discharge at that time. Parveen Palma MD
== END 2018-11-05 15:42 | disposition home or self-care (01) ==
LOC: ED 19:03 → ERH 23:01 → 3RNO 11-04 00:49
PROVIDERS: ADMIT Hospitalist; ATTEND Hospitalist
DX: L02.511 Cutaneous abscess of right hand (principal); L03.113 Cellulitis of right upper limb; L03.011 Cellulitis of right finger; F12.90 Cannabis use, unspecified, uncomplicated; F17.210 Nicotine dependence, cigarettes, uncomplicated; B95.4 Other streptococcus as the cause of diseases classified elsewhere
CPT/HCPCS: 10060; 36415; 73130; 80053; 80324; 80345; 80346; 80349; 80353; 80358; 80361; 81001; 83735; 83992; 84100; 85025; 85027; 87040; 87070; 87086; 87181; 87389; 96365; 96366; 96367; 99284; G0378; J2543